=== PATIENT | male | born 1990 | race Caucasian/White ===

== ENCOUNTER 2020-03-11 10:40 | Emergency (ER) | payer OTHER ==
[~2020-03-11] VITALS: Ht 177.8 cm; Wt 98.0 kg
[2020-03-11 10:57] VITALS: BP 126/68
--- NOTE | 2020-03-11 11:01 | PHYS DOC ---
General Adult EDM: Chief Complaint: UPPER EXTREMITY PAIN HPI: HPI: Patient is a 30-year-old male who present to ER today for evaluation of right wrist pain after he fell in the bathroom 2 days ago. Patient said the pain is on the ulnar area, denies any head or neck injury. Patient denies any lower extremity injury. Review of Systems: Review of Systems: Constitutional: Denies fever or chills Eyes: Denies change in visual acuity HENT: Denies nasal congestion or sore throat Respiratory: Denies cough or shortness of breath Cardiovascular: Denies chest pain or edema GI: Denies abdominal pain, nausea, vomiting, bloody stools or diarrhea : Denies dysuria Musculoskeletal: Denies back pain , positive for right wrist pain. Integument: Denies rash Neurologic: Denies headache, focal weakness or sensory changes Endocrine: Denies polyuria or polydipsia Lymphatic: Denies swollen glands Psychiatric: Denies depression or anxiety Heart Score: Risk Factors: Risk Factors: DM, Current or recent (<one month) smoker, HTN, HLP, family history of CAD, obesity. Risk Scores: Score 0 - 3: 2.5% MACE over next 6 weeks - Discharge Home Score 4 - 6: 20.3% MACE over next 6 weeks - Admit for Clinical Observation Score 7 - 10: 72.7% MACE over next 6 weeks - Early Invasive Strategies Physical Exam: PE: Constitutional: Well developed, well nourished, no acute distress, non-toxic appearance. [] HENT: Normocephalic, atraumatic, bilateral external ears normal, oropharynx moist, no oral exudates, nose normal. [] Eyes: PERRLA, EOMI, conjunctiva normal, no discharge. [] Neck: Normal range of motion, no tenderness, supple, no stridor. [] Cardiovascular:Heart rate regular rhythm, no murmur [] Lungs & Thorax: Bilateral breath sounds clear to auscultation [] Abdomen: Bowel sounds normal, soft, no tenderness, no masses, no pulsatile masses. [] Skin: Warm, dry, no erythema, no rash. [] Back: No tenderness, no CVA tenderness. [] Extremities: No tenderness, no cyanosis, no clubbing, ROM intact, no edema. Right distal ulnar is tender to palpation with swelling, no snuff box tenderness. There is no tenderness along the right elbow or proximal forearm area Neurologic: Alert and oriented X 3, normal motor function, normal sensory function, no focal deficits noted. [] Psychologic: Affect normal, judgement normal, mood normal. [] EKG: EKG: [] Radiology/Procedures: Radiology/Procedures: [address] [address] IMAGING REPORT Signed PATIENT: DELORES BECERRA ACCOUNT: [id number] : 1990 LOCATION: ER AGE: 30 SEX: M EXAM STATUS: REG ER ORD. PHYSICIAN: JUANA MCCARTNEY DO REASON: FELL, INJURED RIGHT WRIST PROCEDURE: WRIST 3V RIGHT AP lateral and oblique views the right wrist no comparison. INDICATION: Wrist pain. FINDINGS: There is an obliquely oriented fracture of the distal ulnar diaphysis. There is joint effusion and subcutaneous swelling identified. Fracture does not appear to extend to the articular surface. An obvious radial fracture is not identified. Consider imaging of the more proximal radius if there is any correlating pain. Electronically signed by: Sadiq Perdomo MD (03/11/2020 10:57 AM) [id number] DICTATED AND SIGNED BY: SADIQ PERDOMO MD DATE: 03/11/20 1057 CC: ASHLEY BISWAS; JUANA MCCARTNEY DO ~ Course & Med Decision Making: Course & Med Decision Making Pertinent Labs and Imaging studies reviewed. (See chart for details) Patient is a 30-year-old male who was evaluated in ER today due to right wrist injury, he was found to have a distal ulnar fracture, a Ortho-Glass Colle's splint was applied to right wrist by patient RN. Patient will be discharged home with instruction to follow-up with the orthopedic doctor for outpatient evaluation and treatment. Dragon Disclaimer: Karina Disclaimer: This electronic medical record was generated, in whole or in part, using a voice recognition dictation system. Departure Departure: Impression: Primary Impression: Right distal ulnar fracture Disposition: 01 HOME/RESIDENCE PRIOR TO ADM Condition: STABLE Referrals: ASHLEY BISWAS (PCP) ALBERT MIRELES II, MD PLEASE CALL THIS ORTHOPEDIC SURGEON FOR FOLLOW UP NEXT THIS WEEK. Patient Instructions: Ulnar Fracture Scripts Naproxen Sodium (ANAPROX DS) 550 Mg Tablet 1 TAB PO BID for RIGHT WRIST PAIN for 15 Days, #30 TAB 0 Refills Prov: JUANA MCCARTNEY DO 03/11/20 JUANA MCCARTNEY DO March 11, 2020 11:01
[2020-03-11] MEDS ORDERED: NAPR-682 PO (11:20)
== END 2020-03-11 11:36 | disposition home or self-care (01) ==
LOC: ER 10:40
DX: S52.601A Unspecified fracture of lower end of right ulna, initial encounter for closed fracture (principal); W18.39XA Other fall on same level, initial encounter; Y93.89 Activity, other specified; Y92.89 Other specified places as the place of occurrence of the external cause; Y99.8 Other external cause status
CPT/HCPCS: 29125; 73110; 99283

== ENCOUNTER → 2020-04-11 | Outpatient (CLI) | payer OTHER ==
[~2020-04-11] MED LIST: NAPR-682 PO
--- NOTE | 2020-04-11 15:03 | RAD ---
EXAM: Right wrist, 3 views. HISTORY: Fracture follow-up. COMPARISON: 03/11/2020. FINDINGS: 3 views of the right wrist are obtained. There has been interval callus formation surrounding a minimally displaced distal ulnar metadiaphyseal fracture. There is slight increased displacement along the main fracture line. No new fracture is seen. IMPRESSION: Healing distal ulnar metadiaphyseal fracture. There is slight increased displacement along the main fracture line. Electronically signed by: Annette Hung MD (04/11/2020 2:59 PM) [facility]
== END ==
LOC: DXRAD 12:29
PROVIDERS: ATTEND Orthopaedic Surgery
DX: S59.0 Physeal fracture of lower end of ulna (principal); X58.XXXD Exposure to other specified factors, subsequent encounter
CPT/HCPCS: 73110

== ENCOUNTER 2021-05-19 12:49 | Emergency (ER) | payer OTHER ==
[~2021-05-19] VITALS: Ht 177.8 cm; Wt 98.0 kg
[2021-05-19 13:09] VITALS: BP 123/63
--- NOTE | 2021-05-19 14:15 | RAD ---
PA lateral chest x-rays HISTORY: Right-sided rib pain from trauma, right anterior rib pain. FINDINGS: Heart size normal. Mediastinal silhouette is normal. No pneumothorax, pulmonary opacities o r pleural effusions. The bones are unremarkable. IMPRESSION: No acute process. Electronically signed by: Hai Swenson MD (05/19/2021 2:13 PM) [facility]
--- NOTE | 2021-05-19 15:20 | PHYS DOC ---
Past History Past Medical History: No Pertinent History Past Surgical History: Other Alcohol Use: Rarely General Adult EDM: Chief Complaint: CHEST WALL PAIN HPI: HPI: Patient is a 31-year-old male being seen in the ER today for right lower rib pain that occurred after he dropped 110 pound dumbbell on his chest today. Patient reports that pain is worse with cough and palpation. He denies any shortness of breath. Review of Systems: Review of Systems: 14 body systems of the review of systems have been reviewed. See HPI for pertinent positive and negative responses, otherwise all other systems are negative, nonpertinent or noncontributory Allergies: Allergies: Allergies Coded Allergies Type Severity Reaction Last Updated Verified No Known Drug Allergies 05/19/21 No Physical Exam: PE: Constitutional: Well developed, well nourished, no acute distress, non-toxic appearance. [] HENT: Normocephalic, atraumatic Eyes: PERRL, conjunctiva normal, no discharge. [] Neck: Normal range of motion, no stridor Cardiovascular:Heart rate regular rhythm, no murmur [] Lungs & Thorax: Bilateral breath sounds clear to auscultation, pain with palpation to right anterior lower rib, no crepitus palpated, no obvious deformity, no flail chest [] Abdomen: Bowel sounds normal, soft, no tenderness, no masses, no pulsatile masses. [] Skin: Warm, dry, no erythema, no rash. [] Back: Normal range of motion Extremities: No tenderness, no cyanosis, no clubbing, ROM intact, no edema. [] Neurologic: Alert and oriented X 3, normal motor function, normal sensory function, no focal deficits noted. [] Psychologic: Affect normal, judgement normal, mood normal. [] Current Patient Data: Vital Signs: Vital Signs Date Time Temp Pulse Resp B/P (MAP) Pulse Ox O2 Delivery O2 Flow Rate FiO2 05/19/21 13:09 97.9 55 12 123/63 96 EKG: EKG: [] Radiology/Procedures: Radiology/Procedures: REASON: rt sided rib pain from trauma, droped weight on right ant. rib PROCEDURE: CHEST PA & LATERAL PA lateral chest x-rays HISTORY: Right-sided rib pain from trauma, right anterior rib pain. FINDINGS: Heart size normal. Mediastinal silhouette is normal. No pneumothorax, pulmonary opacities or pleural effusions. The bones are unremarkable. IMPRESSION: No acute process. Electronically signed by: Candace Swenson MD (05/19/2021 2:13 PM) [facility] [place] DICTATED AND SIGNED BY: CANDACE SWENSON MD DATE: 05/19/211410 CC: ASHLEY BISWAS; EMERGENCY,DEPARTMENT; SHERITA [place] [employer] ~MTH0 0 Heart Score: C/O Chest Pain: No Risk Factors: Risk Factors: DM, Current or recent (<one month) smoker, HTN, HLP, family history of CAD, obesity. Risk Scores: Score 0 - 3: 2.5% MACE over next 6 weeks - Discharge Home Score 4 - 6: 20.3% MACE over next 6 weeks - Admit for Clinical Observation Score 7 - 10: 72.7% MACE over next 6 weeks - Early Invasive Strategies Course & Med Decision Making: Course & Med Decision Making Pertinent Labs and Imaging studies reviewed. (See chart for details) Patient is a 31-year-old male being seen in the ER for right lower rib pain that occurred after he dropped 110 pound dumbbell on his chest. X-ray was negative for any acute findings. Patient is nonlabored and lung sounds are clear. Patient advised to take Tylenol or ibuprofen apply ice for the first 24 hours. I discussed with patient all findings and diagnostic testing as well as the need to follow-up with PCP for further evaluation and treatment or return to the ER if any new or worsening symptoms. Strict return precautions were also discussed at length. Patient voiced understanding and agreement with the plan. Patient is hemodynamically stable at the time of disposition. Karina Disclaimer: Karina Disclaimer: This electronic medical record was generated, in whole or in part, using a voice recognition dictation system. Departure Departure: Impression: Primary Impression: Chest wall contusion Qualified Codes: S20.211A - Contusion of right front wall of thorax, initial encounter Disposition: HOME / SELF CARE / HOMELESS Condition: GOOD Referrals: ASHLEY BISWAS (PCP) Patient Instructions: Chest Contusion Additional Instructions: You were seen in the ER today for right rib pain after dropping a dumbbell in your chest. An x-ray was performed that was unremarkable. You can apply ice 20 minutes on 20 minutes off for the first 24 hours followed by warm packs. You can take Tylenol or ibuprofen for pain. Ensure that you are taking deep breaths and expanding your lungs. Please follow-up with your primary care provider tomorrow regarding your ER visit today. Please return to the ER if you develop worsening of your pain, shortness of breath, difficulty breathing, cough, fevers. EMERGENCY DEPARTMENT GENERAL DISCHARGE INSTRUCTIONS Thank you for coming to [facility] (ED) today and trusting us with you care. We trust that you had a positivie experience in our Emergency Department. If you wish to speak to the department management, you may call the director at [phone]. YOUR FOLLOW UP INSTRUCTIONS ARE FOLLOWS: 1. Do you have a private Doctor? If you do not have a private doctor, please ask for a resource list of physicians or clinics that may be able to assist you with foll ow up care. 2. The Emergency Physician has interpreted your x-rays. The X-Ray specialist will also review them. If there is a change in the findings, you will be notified in 48 hours when at all possible. 3. A lab test or culture has been done, your results will be reviewed and you will be notified if you need a change in treatment. ADDITIONAL INSTRUCTIONS AND INFORMATION: 1. Your care today has been supervised by a physician who is specially trained in emergency care. Many problems require more than one evaluation for a complete diagnosis and treatment. We recommend that you schedule your follow up appointment as re commended to ensure complete treatment of you illness or injury. If you are unable to obtain follow up care and continue to have a problem, or if your condition worsens, we recommend that you return to the ED. 2. We are not able to safely determine your condition over the phone nor are we able to give sound medical advice over the phone. For these safety reasons, if you call for medical advice we will ask you to come to the ED for further evaluation. 3. If you have any questions regarding these discharge instructions please call the ED at [phone]. SAFETY INFORMATION: In the interest of safety, wellness, and injury prevention; we encourage you to wear your sealbelt, if you smoke; quite smoking, and we encourage family to use a protective helmet for bicycling and other sporting events that present an increased risk for head injury. IF YOUR SYMPTOMS WORSEN OR NEW SYMPTOMS DEVELOP, OR YOU HAVE CONCERNS ABOUT YOUR CONDITION; OR IF YOUR CONDITION WORSENS WHILE YOU ARE WAITING FOR YOUR FOLLOW UP APPOINTMENT; EITHER CONTACT YOUR PRIMARY CARE DOCTOR, THE PHYSICIAN WHOSE NAME AND NUMBER YOU WERE GIVEN, OR RETURN TO THE ED IMMEDIATELY. SHERITA [place] [employer] May 19, 2021 15:20
== END 2021-05-19 15:26 | disposition home or self-care (01) ==
LOC: ER 12:49
DX: S20.211A Contusion of right front wall of thorax, initial encounter (principal); W20.8XXA Other cause of strike by thrown, projected or falling object, initial encounter; Y93.89 Activity, other specified; Y92.89 Other specified places as the place of occurrence of the external cause; Y99.8 Other external cause status
CPT/HCPCS: 71046; 99283